=== PATIENT | male | born 1990 | race Caucasian/White ===

== ENCOUNTER 2017-05-27 15:31 | Inpatient (IN) | payer MEDICAID ==
[2017-05-27] VITALS (11 sets, daily range): BP systolic 92–128; BP diastolic 57–80; PULSE 97–108; RESP 12–24; TEMP 98.7
[~2017-05-27] VITALS: Ht 175.3 cm; Wt 81.1 kg
[~2017-05-27 15:31] MED LIST: SUCCINYLCHOLINE CHLORIDE 100 MG/5 ML SYG IV ONE
[2017-05-27] MEDS ORDERED: morphine 4 MG/ML VIAL IV STA (18:03)
[2017-05-27] MEDS ORDERED: ONDANSETRON 4 MG INJ IV STA (18:03)
--- NOTE | 2017-05-27 18:14 | ERD ---
ER Documentation Chief Complaint Date/Time DATE: 05/27/17 TIME: 18:00 Chief Complaint LEFT TESTICULAR PAIN SINCE SATURDAY HPI 27-year-old male who presented emergency department for left testicular pain and swelling since Saturday. He was sent here by self in [facility] with a request to evaluate and rule out severe left testicular torsion. Patient stated that his pain started Saturday but the day before, his pain was on his left inguinal area. He also stated that sometimes when he lies flat the swelling is decreased. He is sexually active with few partners. His partners has no symptoms. Denies headache, dizziness, blurry vision, neck pain, shoulder pain, chest pain , back pain, nausea, vomiting, constipation, urinary symptoms, penile discharge , genital area lesions, trauma, injury, falls, recent long travel, recent antibiotic use in the last 3 months, fever, chills. Stated that he has allergies to amoxicillin when he was younger. Does not have any past medical history. Does not have any surgical history. Medication: Does not take any prescription medications at home. 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 Occasional drinks alcoholic beverages. Denies smoking cigarettes, use of illegal drugs. ROS All systems reviewed and are negative except as per history of present illness. Allergies Allergies: Coded Allergies: No Known Allergy (Unverified , 05/27/17) Physical Exam Vitals Vital Signs Date Time Temp Pulse Resp B/P Pulse Ox O2 Delivery O2 Flow Rate FiO2 05/27/17 15:35 98.2 86 18 156/67 99 Physical Exam Const: [] Head: Atraumatic Eyes: Normal Conjunctiva ENT: Normal External Ears, Nose and Mouth. Neck: Full range of motion..~ No meningismus. Resp: Clear to auscultation bilaterally Cardio: Regular rate and rhythm, no murmurs Abd: Soft, non tender, non distended. Normal bowel sounds External genitalia : Equal hair distribution. No lesions. No rashes. Left testicular area is hard and swollen, tender to touch. Right testicular area has no swelling/ discoloration/tenderness. Penis: No discharge. No bleeding. Skin: No petechiae or rashes Back: No midline or flank tenderness Ext: No cyanosis, or edema Neur: Awake and alert Psych: Normal Mood and Affect Result Diagram: 05/27/17184405/27/171844 Results 24 hrs Laboratory Tests Test 05/27/17 18:00 05/27/17 18:45 Urine Color YELLOW Urine Clarity SLIGHTLY CLOUDY Urine pH 5.0 Urine Specific [place] 1.028 Urine Ketones NEGATIVEmg/dL Urine Nitrite NEGATIVEmg/dL Urine Bilirubin NEGATIVEmg/dL Urine Urobilinogen NEGATIVEmg/dL Urine Leukocyte Esterase NEGATIVELeu/ul Urine Microscopic RBC 1/HPF Urine Microscopic WBC 3/HPF Urine Squamous Epithelial Cells FEW/HPF Urine Mucus MANY/HPF Urine Hemoglobin NEGATIVEmg/dL Urine Glucose NEGATIVEmg/dL Urine Total Protein 1+mg/dl White Blood Count 16.110^3/ul Red Blood Count 5.4710^6/ul Hemoglobin 16.4g/dl Hematocrit 48.1% Mean Corpuscular Volume 87.9fl Mean Corpuscular Hemoglobin 30.0pg Mean Corpuscular Hemoglobin Concent 34.1g/dl Red Cell Distribution Width 12.3% Platelet Count 78642^3/UL Mean Platelet Volume 9.7fl Neutrophils % 68.2% Lymphocytes % 19.5% Monocytes % 10.9% Eosinophils % 0.7% Basophils % 0.2% Nucleated Red Blood Cells % 0.0/100WBC Neutrophils # 11.010^3/ul Lymphocytes # 3.110^3/ul Monocytes # 1.810^3/ul Eosinophils # 0.110^3/ul Basophils # 0.010^3/ul Nucleated Red Blood Cells # 0.010^3/ul Prothrombin Time 12.9Sec Prothrombin Time Ratio 1.0 INR International Normalized Ratio 0.97 Activated Partial Thromboplast Time 29.1Sec Sodium Level 144mmol/L Potassium Level 4.3mmol/L Chloride Level 103mmol/L Carbon Dioxide Level 28mmol/L Anion Gap 17 Blood Urea Nitrogen 14mg/dl Creatinine 1.14mg/dl Glucose Level 91mg/dl Calcium Level 10.0mg/dl Total Bilirubin 0.8mg/dl Direct Bilirubin 0.00mg/dl Indirect Bilirubin 0.8mg/dl Aspartate Amino Transf (AST/SGOT) 41IU/L Alanine Aminotransferase (ALT/SGPT) 55IU/L Alkaline Phosphatase 100IU/L Total Protein 9.5g/dl Albumin 4.8g/dl Globulin 4.70g/dl Albumin/Globulin Ratio 1.02 Amylase Level 134U/L Lipase 103U/L Current Medications Medications (Trade) Dose Ordered Sig/Brandon Route PRN Reason Start Time Stop Time Status Last Admin Dose Admin Sodium Chloride (NS) 500 ml @ 500 mls/hr Q1H ONCE IV 05/27/17 18:30 05/27/17 19:29 DC 05/27/17 18:49 Ondansetron HCl (Zofran Inj) 4 mg ONCE STAT IV 05/27/17 18:03 05/27/17 18:08 DC 05/27/17 18:50 Morphine Sulfate (morphine) 4 mg ONCE STAT IV 05/27/17 18:03 05/27/17 18:08 DC 05/27/17 18:50 Procedures/MDM 27-year-old male who presented emergency department for left testicular pain and swelling since Saturday. He was sent here by self in [facility] with a request to evaluate and rule out severe left testicular torsion. Patient stated that his pain started Saturday but the day before, his pain was on his left inguinal area. He also stated that sometimes when he lies flat the swelling is decreased. He is sexually active with few partners. His partners has no symptoms. Denies headache, dizziness, blurry vision, neck pain, shoulder pain, chest pain , back pain, nausea, vomiting, constipation, urinary symptoms, penile discharge , genital area lesions, trauma, injury, falls, recent long travel, recent antibiotic use in the last 3 months, fever, chills. Stated that he has allergies to amoxicillin when he was younger. Does not have any past medical history. Does not have any surgical history. Medication: Does not take any prescription medications at home. 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 Occasional drinks alcoholic beverages. Denies smoking cigarettes, use of illegal drugs. Physical exam: External genitalia: Equal hair distribution. No lesions. No rashes. Left testicular area is hard and swollen, tender to touch. Right testicular area has no swelling/discoloration/tenderness. Penis: No discharge. No bleeding. Disease process was explained to the patient. He verbalized understanding and agreed with the diagnostic tests, treatment, plan of care. Testicular ultrasound: Radiologist called me and informed me that there is a disc left testicular torsion. Case was discussed with supervising physician, Dr. Radha Aldana who agreed with my diagnostic tests and stated that he will continue to care. Blood works: Urinalysis: Culture urine: Treatment: IV insertion. Normal saline IV 500 cc bolus. Morphine IV. Zofran IV. Differential diagnosis: Testicular torsion versus orchitis versus epididymitis versus inguinal hernia versus inguinal hernia with incarceration versus appendicitis Final diagnosis: Testicular torsion Departure Diagnosis: Primary Impression: Testicular torsion NARESH SOW May 27, 2017 18:14
[2017-05-27] MEDS ORDERED: SOD CHLORIDE 0.9% 500 ML IV ONE (18:30)
[2017-05-27 18:59] LABS: ADD UMIC YES; UR ASCORBIC ACID 40 mg/dL (NEGATIVE); UR BILIRUBIN (Dip) NEGATIVE (NEGATIVE); UR BLOOD (Dip) NEGATIVE (NEGATIVE); UR CLARITY SLIGHTLY CLOUDY (CLEAR); UR COLOR YELLOW (YELLOW); UR GLUCOSE (Dip) NEGATIVE (NEGATIVE); UR KETONES (Dip) NEGATIVE (NEGATIVE); UR LEUKOCYTE ESTERASE (Dip) NEGATIVE Leu/ul (NEGATIVE); UR MUCUS MANY /HPF (NONE SEEN); UR NITRITE (Dip) NEGATIVE (NEGATIVE); UR RBC 1 /HPF (0-5); UR SPECIFIC GRAVITY (Dip) 1.028 (1.003-1.030); UR SQUAMOUS EPITHELIAL CELL FEW /HPF (FEW); UR TOTAL PROTEIN (Dip) 1+ mg/dl (NEGATIVE); UR UROBILINOGEN (Dip) NEGATIVE (NEGATIVE)
[2017-05-27 19:13] LABS: ABNORMAL IP MESSAGE 1; BASOPHILS % 0.2 % (0.0-2.0); EOSINOPHILS # 0.1 10^3/ul (0.0-0.5); EOSINOPHILS % 0.7 % (0.0-7.0); HEMATOCRIT 48.1 % (42.0-52.0); HEMOGLOBIN 16.4 g/dl (14.0-18.0); LYMPHOCYTES # 3.1 10^3/ul (0.8-2.9); LYMPHOCYTES % 19.5 % (15.0-51.0); MEAN CORPUSCULAR HGB CONC 34.1 g/dl (32.0-37.0); MEAN CORPUSCULAR VOLUME 87.9 fl (82.0-101.0); MEAN PLATELET VOLUME 9.7 fl (7.4-10.4); MONOCYTE # 1.8 10^3/ul (0.3-0.9); MONOCYTES % 10.9 % (0.0-11.0); NEUTROPHILS % 68.2 % (39.0-77.0); PLATELET COUNT 243 10^3/UL (140-415); POSITIVE DIFF @See below; RED BLOOD COUNT 5.47 10^6/ul (4.70-6.10); RED CELL DISTRIBUTION WIDTH 12.3 % (11.5-14.5); WHITE BLOOD COUNT 16.1 10^3/ul (4.8-10.8)
[2017-05-27 19:27] LABS: INR 0.97; PROTIME 12.9 Sec (12.2-14.2)
[2017-05-27 19:28] LABS: PARTIAL THROMBOPLASTIN TIME 29.1 Sec (25.0-35.0)
[2017-05-27 19:31] LABS: ALBUMIN 4.8 g/dl (3.3-4.9); ALBUMIN/GLOBULIN RATIO 1.02; BILIRUBIN,INDIRECT 0.8 mg/dl (0-1.1); BILIRUBIN,TOTAL 0.8 mg/dl (0.2-1.3); CREATININE 1.14 mg/dl (0.61-1.24); POTASSIUM 4.3 mmol/L (3.5-5.1); TOTAL PROTEIN 9.5 g/dl (6.1-8.1)
--- NOTE | 2017-05-27 19:35 | RADRPT ---
PROCEDURE: Scrotal ultrasound CLINICAL INDICATION: Testicular pain and swelling. TECHNIQUE: A scrotal ultrasound was performed utilizing walden scale and Doppler imaging. COMPARISON: None. FINDINGS: The right testicle measures 5.0 x 2.2 x 3.1 cm. There is normal size and echogenicity and morphology of the right testicle with normal blood flow. The right epididymis measures 0.9 x 0.8 cm. Normal va scular flow is seen within the right epididymis. The left testicle measures 4.5 x 3.1 x 5.1 cm. The left testicle has a heterogeneous echotexture, wi th large geographic hypoechoic areas. No vascular flow is identified within the left testicular pare nchyma. The left epididymis measures 2.3 x 1.4 cm. No vascular flow is identified in the left epidid ymal parenchyma. No hydrocele or varicocele is identified. IMPRESSION: 1. Absent blood flow in the left testicle and epididymis, consistent with testicular torsion. The l eft testicle has a heterogeneous echotexture, with large geographic hypoechoic areas, suggestive of areas of testicular infarction. 2. Normal appearance of the right testicle and epididymis. Call report: A call report of the findings was made to Sharon Deal NP at 07:33 p.m. on 05/27/2017 . RPTAT: HTAR .Jeffrey Matthews MD, MD Date Time Electronically viewed and signed by .Jeffrey Matthews MD, MD on 05/27/2017 19:35 .R/
--- NOTE | 2017-05-27 19:53 | ERA ---
ER Documentation Chief Complaint Date/Time DATE: 05/27/17 TIME: 19:48 Chief Complaint LEFT TESTICULAR PAIN SINCE SATURDAY HPI 27-year-old male with no significant previous medical history presents to the ED for evaluation of left scrotal pain and swelling. 3 days ago expressed acute onset of unprovoked, sharp, nonradiating left testicular pain. Over the last 3 days has had increasing pain and scrotal swelling. Denies dysuria or polyuria. No history of trauma. Several days ago had mild, transitory left lower quadrant pain which has resolved. Denies nausea, vomiting, diarrhea or constipation. No fevers or chills. He was seen at a local clinic and referred to the ED for further evaluation. ROS All systems reviewed and are negative except as per history of present illness. Allergies Allergies: Coded Allergies: amoxicillin (Verified Allergy, Unknown, 05/27/17) PMhx/Soc Reviewed in chart. As per HPI. Medical and Surgical Hx: pt denies Medical Hx, pt denies Surgical Hx History of Surgery: No Anesthesia Reaction: No Hx Neurological Disorder: No Hx Respiratory Disorders: No Hx Cardiac Disorders: No Hx Psychiatric Problems: No Hx Miscellaneous Medical Probl: No Hx Alcohol Use: No Hx Substance Use: No Hx Tobacco Use: No Smoking Status: Never smoker FmHx No stroke or cancer Physical Exam Vitals Vital Signs Date Time Temp Pulse Resp B/P Pulse Ox O2 Delivery O2 Flow Rate FiO2 05/27/17 20:18 98.7 104 17 143/85 100 Room Air 05/27/17 19:48 104 14 135/95 100 Room Air 05/27/17 15:35 98.2 86 18 156/67 99 Physical Exam Const: [] Head: Atraumatic Eyes: Normal Conjunctiva ENT: Normal External Ears, Nose and Mouth. Neck: Full range of motion..~ No meningismus. Resp: Clear to auscultation bilaterally Cardio: Regular rate and rhythm, no murmurs Abd: Soft, non tender, non distended. Normal bowel sounds Skin: No petechiae or rashes Back: No midline or flank tenderness Ext: No cyanosis, or edema Neur: Awake and alert Psych: Normal Mood and Affect Result Diagram: 05/27/17 1845 05/27/17 1843 Results 24 hrs Laboratory Tests Test 05/27/17 18:00 05/27/17 18:45 Urine Color YELLOW Urine Clarity SLIGHTLY CLOUDY Urine pH 5.0 Urine Specific [place] 1.028 Urine Ketones NEGATIVEmg/dL Urine Nitrite NEGATIVEmg/dL Urine Bilirubin NEGATIVEmg/dL Urine Urobilinogen NEGATIVEmg/dL Urine Leukocyte Esterase NEGATIVELeu/ul Urine Microscopic RBC 1/HPF Urine Microscopic WBC 3/HPF Urine Squamous Epithelial Cells FEW/HPF Urine Mucus MANY/HPF Urine Hemoglobin NEGATIVEmg/dL Urine Glucose NEGATIVEmg/dL Urine Total Protein 1+mg/dl White Blood Count 16.110^3/ul Red Blood Count 5.4710^6/ul Hemoglobin 16.4g/dl Hematocrit 48.1% Mean Corpuscular Volume 87.9fl Mean Corpuscular Hemoglobin 30.0pg Mean Corpuscular Hemoglobin Concent 34.1g/dl Red Cell Distribution Width 12.3% Platelet Count 94313^3/UL Mean Platelet Volume 9.7fl Neutrophils % 68.2% Lymphocytes % 19.5% Monocytes % 10.9% Eosinophils % 0.7% Basophils % 0.2% Nucleated Red Blood Cells % 0.0/100WBC Neutrophils # 11.010^3/ul Lymphocytes # 3.110^3/ul Monocytes # 1.810^3/ul Eosinophils # 0.110^3/ul Basophils # 0.010^3/ul Nucleated Red Blood Cells # 0.010^3/ul Prothrombin Time 12.9Sec Prothrombin Time Ratio 1.0 INR International Normalized Ratio 0.97 Activated Partial Thromboplast Time 29.1Sec Sodium Level 144mmol/L Potassium Level 4.3mmol/L Chloride Level 103mmol/L Carbon Dioxide Level 28mmol/L Anion Gap 17 Blood Urea Nitrogen 14mg/dl Creatinine 1.14mg/dl Glucose Level 91mg/dl Calcium Level 10.0mg/dl Total Bilirubin 0.8mg/dl Direct Bilirubin 0.00mg/dl Indirect Bilirubin 0.8mg/dl Aspartate Amino Transf (AST/SGOT) 41IU/L Alanine Aminotransferase (ALT/SGPT) 55IU/L Alkaline Phosphatase 100IU/L Total Protein 9.5g/dl Albumin 4.8g/dl Globulin 4.70g/dl Albumin/Globulin Ratio 1.02 Amylase Level 134U/L Lipase 103U/L Current Medications Medications (Trade) Dose Ordered Sig/Brandon Route PRN Reason Start Time Stop Time Status Last Admin Dose Admin Sodium Chloride (NS) 500 ml @ 500 mls/hr Q1H ONCE IV 05/27/17 18:30 05/27/17 19:29 DC 05/27/17 18:49 Ondansetron HCl (Zofran Inj) 4 mg ONCE STAT IV 05/27/17 18:03 05/27/17 18:08 DC 05/27/17 18:50 Morphine Sulfate (morphine) 4 mg ONCE STAT IV 05/27/17 18:03 05/27/17 18:08 DC 05/27/17 18:50 Bupivacaine HCl (Marcaine 0.25% (Mpf) 30 ml) 30 ml STK-MED ONCE .ROUTE 05/27/17 20:09 05/27/17 20:10 DC 05/27/17 22:10 PROCEDURE: Scrotal ultrasound CLINICAL INDICATION: Testicular pain and swelling. TECHNIQUE: A scrotal ultrasound was performed utilizing walden scale and Doppler imaging. COMPARISON: None. FINDINGS: The right testicle measures 5.0 x 2.2 x 3.1 cm. There is normal size and echogenicity and morphology of the right testicle with normal blood flow. The right epididymis measures 0.9 x 0.8 cm. Normal vascular flow is seen within the right epididymis. The left testicle measures 4.5 x 3.1 x 5.1 cm. The left testicle has a heterogeneous echotexture, with large geographic hypoechoic areas. No vascular flow is identified within the left testicular parenchyma. The left epididymis measures 2.3 x 1.4 cm. No vascular flow is identified in the left epididymal parenchyma. No hydrocele or varicocele is identified. IMPRESSION: 1. Absent blood flow in the left testicle and epididymis, consistent with testicular torsion. The left testicle has a heterogeneous echotexture, with large geographic hypoechoic areas, suggestive of areas of testicular infarction. 2. Normal appearance of the right testicle and epididymis. Call report: A call report of the findings was made to Sharon Deal NP at 07: 33 p.m. on 05/27/2017. RPTAT: HTAR .Jeffrey Matthews MD, MD Date Time Electronically viewed and signed by .Jeffrey Matthews MD, MD on 05/27/2017 19:35 .R/ Procedures/MDM DOCUMENTS REVIEWED: ED nurse, no prior records MEDICAL DECISION MAKIN-year-old male with no significant previous medical history presents to the ED for evaluation of left scrotal pain and swelling. Differential includes but is not limited to epididymitis, scrotal cellulitis, Israel's gangrene, neoplasm and testicular torsion. Ultrasound consistent with testicular torsion and infarction. Abdominal exam is benign without rebound, guarding or signs of intra-abdominal process including but not limited to appendicitis, diverticulitis and incarcerated hernia. Patient be admitted for urgent surgical evaluation and management. Counseled patient regarding diagnosis, diagnostic results and plan for admission. CALLS/CONSULTS: Time 19:40, Dr. Fuchs, Recommends Admission and urgent exploration. CALLS/CONSULTS: Time 20:10, Dr. Ponce PATIENT CARE TRANSITIONED: Time: 20:15, Dr. Ponce. Departure Diagnosis: Primary Impression: Testicular torsion Condition: Serious SAHRA AMOR MD May 27, 2017 19:53
[2017-05-27] MEDS ORDERED: BUPIVACAINE 0.25% (MPF) 30 ML INJ ONE (20:09)
[2017-05-27] MEDS ORDERED: LIDOCAINE 2% (SDV) 5 ML INJ ONE (21:10)
[2017-05-27] MEDS ORDERED: MIDAZOLAM 1 MG/ML 2 ML INJ ONE (21:10)
[2017-05-27] MEDS ORDERED: PROPOFOL 20 ML ONE (21:10)
--- NOTE | 2017-05-27 21:18 | CONS ---
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 Sent to ER from PMD today. TUS show no flow LT and probable infarction. Social History Smoking Status: Never smoker Exam/Review of Systems Vital Signs Vitals Vital Signs Date Time Temp Pulse Resp B/P Pulse Ox O2 Delivery O2 Flow Rate FiO2 05/27/17 20:18 98.7 104 17 143/85 100 Room Air Exam Genitourinary - Male: nl penis, other (markedly swollen left alexandra scroum and tender enlarged left testicle) Results Result Diagram: 05/27/17 1845 05/27/17 1845 Results 24 hrs Laboratory Tests Test 05/27/17 18:00 05/27/17 18:45 Urine Color YELLOW Urine Clarity SLIGHTLY CLOUDY A Urine pH 5.0 Urine Specific [place] 1.028 Urine Ketones NEGATIVE Urine Nitrite NEGATIVE Urine Bilirubin NEGATIVE Urine Urobilinogen NEGATIVE Urine Leukocyte Esterase NEGATIVE Urine Microscopic RBC 1 Urine Microscopic WBC 3 Urine Squamous Epithelial Cells FEW Urine Mucus MANY A Urine Hemoglobin NEGATIVE Urine Glucose NEGATIVE Urine Total Protein 1+ H White Blood Count 16.1 H Red Blood Count 5.47 Hemoglobin 16.4 Hematocrit 48.1 Mean Corpuscular Volume 87.9 Mean Corpuscular Hemoglobin 30.0 Mean Corpuscular Hemoglobin Concent 34.1 Red Cell Distribution Width 12.3 Platelet Count 243 Mean Platelet Volume 9.7 Neutrophils % 68.2 Lymphocytes % 19.5 Monocytes % 10.9 Eosinophils % 0.7 Basophils % 0.2 Nucleated Red Blood Cells % 0.0 Neutrophils # 11.0 H Lymphocytes # 3.1 H Monocytes # 1.8 H Eosinophils # 0.1 Basophils # 0.0 Nucleated Red Blood Cells # 0.0 Prothrombin Time 12.9 Prothrombin Time Ratio 1.0 INR International Normalized Ratio 0.97 Activated Partial Thromboplast Time 29.1 Sodium Level 144 Potassium Level 4.3 Chloride Level 103 Carbon Dioxide Level 28 Anion Gap 17 H Blood Urea Nitrogen 14 Creatinine 1.14 Glucose Level 91 Calcium Level 10.0 Total Bilirubin 0.8 Direct Bilirubin 0.00 Indirect Bilirubin 0.8 Aspartate Amino Transf (AST/SGOT) 41 Alanine Aminotransferase (ALT/SGPT) 55 Alkaline Phosphatase 100 Total Protein 9.5 H Albumin 4.8 Globulin 4.70 H Albumin/Globulin Ratio 1.02 Amylase Level 134 H Lipase 103 GNIA LERNER MD May 27, 2017 21:18
[2017-05-27] MEDS ORDERED: ESMOLOL 10 ML ONE (21:25)
[2017-05-27] MEDS ORDERED: FENTAnyl 50 MCG/ML VIAL ONE (21:27)
[2017-05-27] MEDS ORDERED: ACETAMINOPHEN 325 MG TAB PO PRN ×3 (21:30→22:30)
[2017-05-27] MEDS ORDERED: ONDANSETRON 4 MG INJ IV PRN ×4 (21:30→22:30)
[2017-05-27] MEDS ORDERED: DEXAMETHASONE 4 MG/ML 1 ML INJ ONE (21:33)
[2017-05-27] MEDS ORDERED: ONDANSETRON 4 MG INJ ONE (21:33)
[2017-05-27] MEDS: SOD CHLORIDE 0.9% 1,000 ML IV SCH (21:34)
[2017-05-27] MEDS ORDERED: HYDROmorphONE (0.2 MG/ML) 10ML SYG IV PRN (22:00)
[2017-05-27] MEDS ORDERED: NACL 0.9% 3 ML SYG IV SCH (22:00)
[2017-05-27] MEDS ORDERED: morphine 2 MG INJ IV PRN (22:00)
[2017-05-27] MEDS ORDERED: METOCLOPRAMIDE 10 MG INJ IV PRN (22:00)
[2017-05-27] MEDS ORDERED: HYDROCODONE/APAP (5/325) TAB PO PRN (22:30)
[2017-05-27] MEDS ORDERED: KETOROLAC 30 MG INJ IV PRN (22:30)
[2017-05-27] MEDS ORDERED: DIPHENHYDRAMINE 50 MG INJ IV PRN (22:30)
[2017-05-27] MEDS ORDERED: HYDROmorphONE 0.5 MG/0.5 ML SYG IV PRN (22:30)
[2017-05-27] MEDS ORDERED: CEPASTAT LOZENGE MT PRN (22:30)
[2017-05-27] MEDS ORDERED: IBUPROFEN 600 MG TAB PO PRN (22:30)
--- NOTE | 2017-05-27 22:35 | SIPON ---
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
[2017-05-27] MEDS: HYDROmorphONE (0.2 MG/ML) 10ML SYG IV PRN ×4 (22:48→23:10)
[2017-05-27] MEDS: FAMOTIDINE 20 MG INJ IV SCH (23:57)
[2017-05-27] MEDS: D5W-0.45 NACL + KCL 20 MEQ 1,000 ML IV SCH (23:58)
[2017-05-28] VITALS (7 sets, daily range): BP systolic 112–138; BP diastolic 64–76; PULSE 95; RESP 18; Ht 175.3 cm; Wt 81.1 kg
--- NOTE | 2017-05-28 01:36 | HP ---
Date/Time of Note Date/Time of Note DATE: 05/28/17 TIME: : Assessment/Plan VTE Prophylaxis VTE Prophylaxis Intervention: SCD's Lines/Catheters IV [facility] Peripheral IV Assessment/Plan Chief Complaint/Hosp Course This is a 27 year male [facility] for: #1 left testicular torsion: Ultrasound:Absent blood flow in the left testicle and epididymis, consistent with testicular torsion. Urology was emergently consulted via the ED. patient is status post left testicular exploration, detorsion left testicle left orchiectomy, rt testicular fixation. At the current time will continue management as per urology recommendations. Will resume diet in the a.m. pain control with IV medications as indicated. #2 leukocytosis: Likely secondary #1. Patient remains afebrile. This likely is stress related in nature/reactive. Will continue to monitor for any signs of infection. Will repeat in the a.m. #3 DVT and GI prophylaxis: SCDs, acid moriah Further treatment strategy will be implemented as per the clinical course Problems: HPI/ROS Admit Date/Time Admit Date/Time Hx of Present Illness 27-year-old male who presented emergency department for left testicular pain and swelling since Saturday. He was sent here by self in [facility] with a request to evaluate and rule out severe left testicular torsion. Patient stated that his pain started Saturday but the day before, his pain was in his left inguinal area. He also stated that sometimes when he lies flat the swelling is decreased. He is sexually active with few partners. His partners has no symptoms. Denies headache, dizziness, blurry vision, neck pain, shoulder pain, chest pain , back pain, nausea, vomiting, constipation, urinary symptoms, penile discharge , genital area lesions, trauma, injury, falls, recent long travel, recent antibiotic use in the last 3 months, fever, chills. Stated that he has allergies to amoxicillin when he was younger. Allergies: Amoxicillin Medications: None ROS Const: As per HPI Eyes : No pain discharge or redness or change in visual acuity ENT: No pain, sore throat, congestion, congestion, dysphagia or discharge Respiratory: No shortness of breath, cough, sputum, wheezing, or pleuritic pain Cardiovascular: No chest pain, palpitation, PND, or edema GI : no change in appetite, abdominal pain, nausea, vomiting, diarrhea, constipation, or change in the color his stool Genitourinary: As per HPI Musculoskeletal: No joint pain, back pain, neck pain, restricted range of motion in neck or joints Skin: No rash, bruising or hives Neuro: No headache, dizziness, syncope, seizure, focal weakness Endocrine: No polyuria, polydipsia, temperature intolerance Psych: No hallucination, depression, anxiety or suicidal ideation PMH/Family/Social Past Medical History Medical History: no pertinent history Past Surgical History Past Surgical Hx: no surgical history Family History Significant Family History: no pertinent family hx Social History Alcohol Use: occasionally Smoking Status: Never smoker Drug Use: none Exam/Review of Systems Vital Signs Vitals Vital Signs Date Time Temp Pulse Resp B/P Pulse Ox O2 Delivery O2 Flow Rate FiO2 05/28/17 00:18 98.4 100 18 130/76 98 05/27/17 23:22 Nasal Cannula 2.0 Intake and Output 05/27/17 05/27/17 05/28/17 15:00 23:00 07:00 Intake Total 2000 ml 120 ml Output Total 20 ml Balance 1980 ml 120 ml Exam Exam General: Patient is well-developed well-nourished The patient is alert oriented -3 lying comfortably in bed. HEENT: Atraumatic, normocephalic. The pupils are equal, round and reactive. Extraocular motor are intact Neck: Supple with full range of motion. No rigidity or meningismus Chest: Nontender Lungs: Clear to auscultation bilaterally no crackles rales or wheezing Heart: Normal S1-S2, Regular rhythm and rate. No murmur, S3, or S4 Abdomen: Soft , nontender, nondistended , bowel sounds are present. No guarding no rebound tenderness , No masses or organomegaly. No costovertebral temporal angle mass Extremities: Normal to inspection, no edema no cyanosis Neurologic: Normal mental status, speech normal, cranial nerves II through XII are intact, motor and sensory are intact, no focal weakness Genitourinary: Dressing clean dry and intact patient status post surgery Additional Comments PROCEDURE: Scrotal ultrasound CLINICAL INDICATION: Testicular pain and swelling. TECHNIQUE: A scrotal ultrasound was performed utilizing walden scale and Doppler imaging. COMPARISON: None. FINDINGS: The right testicle measures 5.0 x 2.2 x 3.1 cm. There is normal size and echogenicity and morphology of the right testicle with normal blood flow. The right epididymis measures 0.9 x 0.8 cm. Normal vascular flow is seen within the right epididymis. The left testicle measures 4.5 x 3.1 x 5.1 cm. The left testicle has a heterogeneous echotexture, with large geographic hypoechoic areas. No vascular flow is identified within the left testicular parenchyma. The left epididymis measures 2.3 x 1.4 cm. No vascular flow is identified in the left epididymal parenchyma. No hydrocele or varicocele is identified. IMPRESSION: 1. Absent blood flow in the left testicle and epididymis, consistent with testicular torsion. The left testicle has a heterogeneous echotexture, with large geographic hypoechoic areas, suggestive of areas of testicular infarction. 2. Normal appearance of the right testicle and epididymis. Call report: A call report of the findings was made to Naresh Deal NP at 07: 33 p.m. on 05/27/2017. RPTAT: HTAR .Jeffrey Matthews MD, MD Date Time Electronically viewed and signed by .Jeffrey Matthews MD, MD on 05/27/2017 19:35 .R/ CC: NARESH DEAL Labs Result Diagram: 05/27/17 1845 05/27/17 1845 Medications Medications Current Medications Sodium Chloride (NS) 1,000 ml @ 100 mls/hr Q10H IV ; Start 05/27/17 at 21:34 Ondansetron HCl (Zofran Inj) 4 mg Q6H PRN IV NAUSEA AND/OR VOMITING; Start at 22:00 Acetaminophen (Tylenol Tab) 650 mg Q6H PRN PO PAIN LEVEL 1-3 OR FEVER; Start 05/27/17 at 22:00 Acetaminophen/ Hydrocodone Bitart ([place] (5/325)) 1 tab Q6H PRN PO MODERATE PAIN LEVEL 4-6; Start 05/27/17 at 22:00 Morphine Sulfate (morphine) 2 mg Q4H PRN IV SEVERE PAIN LEVEL 7-10; Start at 22:00 Famotidine (Pepcid Iv) 20 mg Q12 IV Last administered on 05/27/17 23:57; Admin Dose 20 MG; Start 05/27/17 at 22:00 Hydromorphone HCl (Dilaudid) 0.5 mg Q6H PRN IV PAIN LEVEL 6-10; Start at 22:30 Acetaminophen/ Hydrocodone Bitart ([place] (5/325)) 1 tab Q6H PRN PO PAIN LEVEL 6 -10; Start 05/27/17 at 22:30 Ketorolac Tromethamine (Toradol) 30 mg Q6H PRN IV PAIN Last administered on 00:33; Admin Dose 30 MG; Start 05/27/17 at 22:30; Stop 05/30/17 at 22: 29 Acetaminophen (Tylenol Tab) 650 mg Q6H PRN PO PAIN AND OR ELEVATED TEMP; Start 05/27/17 at 22:30 Ibuprofen (Motrin) 600 mg Q6H PRN PO PAIN LEVEL 1-5; Start 05/27/17 at 22:30; Status Future Hold Diphenhydramine HCl (Benadryl) 25 mg Q6H PRN IV ITCHING; Start 05/27/17 at 22: 30 Ondansetron HCl 4 mg 4 mg Q6H PRN IV NAUSEA AND/OR VOMITING; Start 05/27/17 at 22:30 Potassium Chloride/Dextrose/ Sod Cl (D5-1/2ns + KCl 20 Meq) 1,000 ml @ 100 mls/ hr Q10H IV Last administered on 05/27/17 23:58; Admin Dose 100 MLS/HR; Start 05/27/17 at 22:20 Phenol (Cepastat Lozenge) 1 lozenge PRN PRN MT SORE THROAT; Start 05/27/17 at 22:30 SHEREEN CRUZ May 28, 2017 01:36
[2017-05-28] MEDS: HYDROCODONE/APAP (5/325) TAB PO PRN ×2 (03:39→13:40)
--- NOTE | 2017-05-28 04:13 | OPR ---
DATE OF OPERATION: 05/27/2017 PREOPERATIVE DIAGNOSIS: Left testicular torsion with probable infarction. 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 OPERATION PERFORMED: Left scrotal exploration, detorsion left testicle, left orchiectomy, right orc hidopexy. SURGEON. Adrian Fuchs MD INDICATIONS FOR SURGERY: This 27-year-old male presented to the [facility] emergency room with a 4-day history of left-sided testicular pain. He was worked up in the emergency room where a Doppler ultrasound showed no flow to the left testicle and multiple hypoechoic lesions in the testic le, compatible with infarction. OPERATIVE FINDINGS: The left testicle was torsed and completely black with no blood flow after the tunica albuginea was opened. The right testicle appeared to be normal and was affixed to the median raphe. DESCRIPTION OF PROCEDURE: Under general anesthesia, the patient was prepped and draped in the supin e position. A midline scrotal incision was made and the right and left scrotal compartments were de veloped. The left tunica was opened. It was markedly swollen and very hyperemic. The dark blue to black testicle was then everted through the wound and then detorsed. The tunica albuginea was then opened and the parenchyma was completely black and did not recover with time. At this point, a lef t orchiectomy was performed by the vas from the cord structures, doubly clamped, dividing and ligating with 2-0 Vicryl. The cord structures were then and doubly ligated with 2-0 Vicryl. Testicle was removed. Bleeding was controlled with electrocautery. The wound was irrigate d. The right side was then approached. The tunica vaginalis was opened and 2 sutures of 3-0 Prolen e were placed, suturing the upper pole to the median raphe and the lower pole to the median raphe. At this point, the wound was closed in 2 layers, closing the left scrotal compartment with 3-0 Vicry l, the right scrotal compartment with 3-0 Vicryl and the skin with 4-0 chromic. Sterile dressing wa s placed. The patient was awakened and brought to the recovery room in stable condition. Ten mL of 0.25% Marcaine was instilled into the right and left cords and to the scrotal incision. Dictated By: ADRIAN FUCHS MD RS/JEANETTE Conf#: [id number] DID#: [id number] CC: SHEREEN CRUZ MD;*End*
[2017-05-28 05:41] LABS: BASOPHILS % 0.2 % (0.0-2.0); EOSINOPHILS % 0.1 % (0.0-7.0); HEMATOCRIT 40.9 % (42.0-52.0); HEMOGLOBIN 13.5 g/dl (14.0-18.0); LYMPHOCYTES # 0.9 10^3/ul (0.8-2.9); LYMPHOCYTES % 7.8 % (15.0-51.0); MEAN CORPUSCULAR HEMOGLOBIN 28.9 pg (29.0-33.0); MEAN CORPUSCULAR VOLUME 87.6 fl (82.0-101.0); MONOCYTE # 0.5 10^3/ul (0.3-0.9); NEUTROPHIL # 10.3 10^3/ul (1.6-7.5); NEUTROPHILS % 87.5 % (39.0-77.0); PLATELET COUNT 213 10^3/UL (140-415); RED BLOOD COUNT 4.67 10^6/ul (4.70-6.10); RED CELL DISTRIBUTION WIDTH 12.7 % (11.5-14.5); WHITE BLOOD COUNT 11.7 10^3/ul (4.8-10.8)
[2017-05-28 06:31] LABS: INR 1.07; PROTIME 13.9 Sec (12.2-14.2); PT RATIO 1.1
[2017-05-28 06:32] LABS: PARTIAL THROMBOPLASTIN TIME 30.8 Sec (25.0-35.0)
[2017-05-28 06:51] LABS: ALBUMIN 3.6 g/dl (3.3-4.9); ALBUMIN/GLOBULIN RATIO 1.05; BILIRUBIN,INDIRECT 0.6 mg/dl (0-1.1); BILIRUBIN,TOTAL 0.6 mg/dl (0.2-1.3); CALCIUM 8.3 mg/dl (8.4-10.2); CREATININE 0.92 mg/dl (0.61-1.24); MAGNESIUM 2.1 mg/dl (1.7-2.5); POTASSIUM 4.9 mmol/L (3.5-5.1)
[2017-05-28] MEDS: SOD CHLORIDE 0.9% 1,000 ML IV SCH (06:53)
[2017-05-28] MEDS: D5W-0.45 NACL + KCL 20 MEQ 1,000 ML IV SCH ×2 (08:20→08:39)
[2017-05-28] MEDS: FAMOTIDINE 20 MG INJ IV SCH (08:30)
--- NOTE | 2017-05-28 16:29 | PN ---
Date/Time of Note Date/Time of Note DATE: 05/28/17 TIME: 16:27 Assessment/Plan VTE Prophylaxis VTE Prophylaxis Intervention: SCD's Lines/Catheters IV Catheter Type (from Nrs[facility]): Peripheral IV Assessment/Plan Assessment/Plan 27 yo M admitted for torsion of L testicle sp left scrotal exploration, detorsion left testicle, left orchiectomy, right orchidopexy 10.16 PLAN dc in AM with pain meds and follow up Subjective 24 Hr Interval Summary Free Text/Dictation Pt feels ok. Requesting one more night in the hospital Exam/Review of Systems Vital Signs Vitals Vital Signs Date Time Temp Pulse Resp B/P Pulse Ox O2 Delivery O2 Flow Rate FiO2 05/28/17 14:00 98.3 99 18 127/69 100 05/28/17 05:00 Nasal Cannula 2.0 Intake and Output 05/27/17 05/27/17 05/28/17 15:00 23:00 07:00 Intake Total 2000 ml 1570 ml Output Total 20 ml 1100 ml Balance 1980 ml 470 ml Exam nad no mrg lungs clear no mrg no rashes no edema +scrotal truss with gauze Results Result Diagram: 05/28/17 0445 05/28/17 0445 Results 24 hrs Laboratory Tests Test 05/27/17 18:00 05/27/17 18:45 05/28/17 04:45 Urine Color YELLOW Urine Clarity SLIGHTLY CLOUDY A Urine pH 5.0 Urine Specific [place] 1.028 Urine Ketones NEGATIVE Urine Nitrite NEGATIVE Urine Bilirubin NEGATIVE Urine Urobilinogen NEGATIVE Urine Leukocyte Esterase NEGATIVE Urine Microscopic RBC 1 Urine Microscopic WBC 3 Urine Squamous Epithelial Cells FEW Urine Mucus MANY A Urine Hemoglobin NEGATIVE Urine Glucose NEGATIVE Urine Total Protein 1+ H White Blood Count 16.1 H 11.7 #H Red Blood Count 5.47 4.67 L Hemoglobin 16.4 13.5 L Hematocrit 48.1 40.9 L Mean Corpuscular Volume 87.9 87.6 Mean Corpuscular Hemoglobin 30.0 28.9 L Mean Corpuscular Hemoglobin Concent 34.1 33.0 Red Cell Distribution Width 12.3 12.7 Platelet Count 243 213 Mean Platelet Volume 9.7 10.0 Neutrophils % 68.2 87.5 H Lymphocytes % 19.5 7.8 L Monocytes % 10.9 4.0 Eosinophils % 0.7 0.1 Basophils % 0.2 0.2 Nucleated Red Blood Cells % 0.0 0.0 Neutrophils # 11.0 H 10.3 H Lymphocytes # 3.1 H 0.9 Monocytes # 1.8 H 0.5 Eosinophils # 0.1 0.0 Basophils # 0.0 0.0 Nucleated Red Blood Cells # 0.0 0.0 Prothrombin Time 12.9 13.9 Prothrombin Time Ratio 1.0 1.1 INR International Normalized Ratio 0.97 1.07 Activated Partial Thromboplast Time 29.1 30.8 Sodium Level 144 140 Potassium Level 4.3 4.9 Chloride Level 103 105 Carbon Dioxide Level 28 27 Anion Gap 17 H 13 Blood Urea Nitrogen 14 11 Creatinine 1.14 0.92 Glucose Level 91 140 # Calcium Level 10.0 8.3 L Total Bilirubin 0.8 0.6 Direct Bilirubin 0.00 0.00 Indirect Bilirubin 0.8 0.6 Aspartate Amino Transf (AST/SGOT) 41 32 Alanine Aminotransferase (ALT/SGPT) 55 39 Alkaline Phosphatase 100 70 Total Protein 9.5 H 7.0 # Albumin 4.8 3.6 # Globulin 4.70 H 3.40 H Albumin/Globulin Ratio 1.02 1.05 Amylase Level 134 H Lipase 103 Magnesium Level 2.1 Medications Medications Current Medications Sodium Chloride (NS) 1,000 ml @ 100 mls/hr Q10H IV ; Start 05/27/17 at 21:34 Acetaminophen/ Hydrocodone Bitart ([place] (5/325)) 1 tab Q6H PRN PO MODERATE PAIN LEVEL 4-6 Last administered on 05/28/17 13:40; Admin Dose 1 TAB; Start 05/27/17 at 22:00 Morphine Sulfate (morphine) 2 mg Q4H PRN IV SEVERE PAIN LEVEL 7-10; Start at 22:00 Hydromorphone HCl (Dilaudid) 0.5 mg Q6H PRN IV PAIN LEVEL 6-10; Start at 22:30 Acetaminophen/ Hydrocodone Bitart ([place] (5/325)) 1 tab Q6H PRN PO PAIN LEVEL 6 -10; Start 05/27/17 at 22:30 Ketorolac Tromethamine (Toradol) 30 mg Q6H PRN IV PAIN Last administered on 00:33; Admin Dose 30 MG; Start 05/27/17 at 22:30; Stop 05/30/17 at 22: 29 Acetaminophen (Tylenol Tab) 650 mg Q6H PRN PO PAIN AND OR ELEVATED TEMP; Start 05/27/17 at 22:30 Ibuprofen (Motrin) 600 mg Q6H PRN PO PAIN LEVEL 1-5; Start 05/27/17 at 22:30; Status Future Hold Diphenhydramine HCl (Benadryl) 25 mg Q6H PRN IV ITCHING; Start 05/27/17 at 22: 30 Ondansetron HCl 4 mg 4 mg Q6H PRN IV NAUSEA AND/OR VOMITING; Start 05/27/17 at 22:30 Potassium Chloride/Dextrose/ Sod Cl (D5-1/2ns + KCl 20 Meq) 1,000 ml @ 100 mls/ hr Q10H IV Last administered on 05/28/17t 08:39; Admin Dose 100 MLS/HR; Start 05/27/17 at 22:20 Phenol (Cepastat Lozenge) 1 lozenge PRN PRN MT SORE THROAT; Start 05/27/17 at 22:30 Influenza Virus Vaccine (Fluzone) 0.5 ml ONCE ONCE IM* ; Start 05/29/17 at 09: 00; Stop 05/29/17 at 09:01 Famotidine (Pepcid) 20 mg BID PO ; Start 05/28/17 at 21:00 KWESI NINO MD May 28, 2017 16:28
[2017-05-28] MEDS ORDERED: FAMOTIDINE 20 MG TAB PO SCH (21:00)
[2017-05-29 02:00] VITALS: BP 125/76; RESP 20
[2017-05-29 05:32] LABS: INR 0.95; PROTIME 12.7 Sec (12.2-14.2)
[2017-05-29 05:33] LABS: PARTIAL THROMBOPLASTIN TIME 29.5 Sec (25.0-35.0)
[2017-05-29 07:00] VITALS: BP 117/72; RESP 18
[2017-05-29] MEDS ORDERED: INFLUENZA VIRUS VACCINE 0.5 ML (DISPENSING) IM* ONE (09:00)
[2017-05-29] MEDS: HYDROCODONE/APAP (5/325) TAB PO PRN (09:15)
--- NOTE | 2017-05-29 09:43 | DS ---
Date/Time of Note Date/Time of Note DATE: 05/29/17 TIME: 09:42 Discharge Summary Admission/Discharge Info Admit Date/Time May 27, 2017 at 21:17 Discharge Date/Time Discharge Diagnosis torsion of L testicle Patient Condition: Good Consults urology Procedures 10.16 Left scrotal exploration, detorsion left testicle, left orchiectomy, right orchidopexy. Hx of Present Illness 27-year-old male who presented emergency department for left testicular pain and swelling since Saturday. He was sent here by self in [facility] with a request to evaluate and rule out severe left testicular torsion. Patient stated that his pain started Saturday but the day before, his pain was in his left inguinal area. He also stated that sometimes when he lies flat the swelling is decreased. He is sexually active with few partners. His partners has no symptoms. Denies headache, dizziness, blurry vision, neck pain, shoulder pain, chest pain , back pain, nausea, vomiting, constipation, urinary symptoms, penile discharge , genital area lesions, trauma, injury, falls, recent long travel, recent antibiotic use in the last 3 months, fever, chills. Stated that he has allergies to amoxicillin when he was younger. Allergies: Amoxicillin Medications: None Hospital Course Pt had his orchiectomy. Post op course uncomplicated. By POD1 pt ambulating and having BMs. Pt discharged home with follow up and pain meds Follow-up Plan in 1w Primary Care Provider Care Physician No Primary Time spent on discharge: > 30 minutes Pending Labs Laboratory Tests Test 05/29/17 04:45 Prothrombin Time 12.7Sec (12.2-14.2) Prothrombin Time Ratio 1.0 INR International Normalized Ratio 0.95 Activated Partial Thromboplast Time 29.5Sec (25.0-35.0) Copies To: CC: GINA LERNER MD, ELLEN MD May 29, 2017 09:43
--- NOTE | 2017-05-29 09:46 | PDOCDIS ---
Discharge Instructions DIAGNOSIS Discharge Diagnosis torsion of L testicle CONDITION Patient Condition: Good HOME CARE INSTRUCTIONS: Diet Instructions: Regular ACTIVITY: Activity Restrictions: Slowly Increase Activity Rest between Activity Avoid heavy lifting Bathing Restrictions: Shower FOLLOW UP/APPOINTMENTS Follow-up Plan Follow up with the urologist in [address] Adrian Garcia Office Address [id number] [address] Office KWESI NINO MD May 29, 2017 09:46
== END 2017-05-29 14:36 | disposition home or self-care (01) | DRG 711 ==
LOC: FTE 15:31 → MS1 21:17
PROVIDERS: ADMIT Family Medicine; ATTEND Family Medicine
PROC: 0VS90ZZ Reposition Right Testis, Open Approach (ICD-10-PCS; 2017-05-27)
PROC: 0VNB0ZZ Release Left Testis, Open Approach (ICD-10-PCS; 2017-05-27)
PROC: 0VTB0ZZ Resection of Left Testis, Open Approach (ICD-10-PCS; principal; 2017-05-27 21:00)
DX: N50.1 Vascular disorders of male genital organs (principal); N44.00 Torsion of testis, unspecified; D72.829 Elevated white blood cell count, unspecified
CPT/HCPCS: 76870; 80053; 81001; 82150; 83690; 83735; 85025; 85610; 85730; 87086; 88305; 90686; 96374; 96375; J1100; J1170; J1885; J2250; J2270; J2405; J3010; J3480; J7030; J7040